=== PATIENT | female | born 1975 | race Caucasian/White ===

== ENCOUNTER → 2018-09-07 | Outpatient (CLI) | payer OTHER ==
[~2018-09-07] MED LIST: DULA1.5P; ETON1VAG7 VG; EXEN2VIA SQ; FLUC150T40 PO; METF-451 PO; PRED20TA6 PO
--- NOTE | 2018-09-07 17:53 | RADIOLOGY IMAGING REPORT ---
FACILITY: [facility] PATIENT NAME: Dacia Ramirez : 1975 MR: [id number] V: [id number] EXAM DATE: ORDERING PHYSICIAN: AUDREY HAN TECHNOLOGIST: Location: [facility] - [place] Patient: Dacia Ramirez : 1975 Visit/Account:[id number] Date of Sevice: 09/07/2018 Exam type: SOFT TISSUE HEAD NECK History: Right neck mass on exam, family history of neck and throat cancer Comparison: None. Findings: In the location of patient's palpable abnormality in zone one adjacent to the angle of the mandible t here is a 0.8 x 0.4 x 0.9 cm fatty replaced lymph node no other lymph nodes were demonstrated in eith er side of the neck IMPRESSION: 1. There is a small subcentimeter fatty replaced lymph node zone one in location of patient's palpab le finding Report Dictated By: Janet Stout MD at 09/07/2018 5:47 PM Report E-Signed By: Janet Stout MD at 09/07/2018 5:49 PM WSN:[id number]
== END ==
LOC: US 15:45
PROVIDERS: ATTEND Nurse Practitioner Family
DX: R59.0 Localized enlarged lymph nodes (principal)
CPT/HCPCS: 76536

== ENCOUNTER → 2018-09-08 | Outpatient (CLI) | payer OTHER ==
--- NOTE | 2018-09-08 12:30 | EKG ---
FACILITY: [facility] PATIENT NAME: KEIKO ZAFAR : [id number] MR: [id number] V: [id number] EXAM DATE: ORDERING PHYSICIAN: ZAYDA ALEXANDRE TECHNOLOGIST: JALEESA Test Reason : PRE-OP CLEARANCE Blood Pressure : / mmHG Vent. Rate : 081 BPM Atrial Rate : 081 BPM P-R Int : 158 ms QRS Dur : 092 ms QT Int : 392 ms P-R-T Axes : 037 078 053 degrees QTc Int : 455 ms Normal sinus rhythm Normal ECG No previous ECGs available Confirmed by BILL MONTGOMERY ([id number]) on 09/08/2018 10:05:58 PM Referred By: BALDOMERO Confirmed By:BILL MONTGOMERY
== END ==
LOC: LAB 11:28
PROVIDERS: ATTEND Surgery
DX: Z01.810 Encounter for preprocedural cardiovascular examination (principal); E11.9 Type 2 diabetes mellitus without complications
CPT/HCPCS: 36415; 82310; 82374; 82435; 82565; 82947; 83036; 84132; 84295; 84520

== ENCOUNTER → 2018-09-17 | Outpatient (CLI) | payer OTHER ==
--- NOTE | 2018-09-17 16:27 | RADIOLOGY IMAGING REPORT ---
FACILITY: [facility] PATIENT NAME: Dacia Ramirez : 1975 MR: [id number] V: [id number] EXAM DATE: ORDERING PHYSICIAN: DIANA SNIDER TECHNOLOGIST: Location: [facility] - [place] Patient: Dacia Ramirez : 1975 Visit/Account:[id number] Date of Sevice: 09/17/2018 Study: CT scan of the paranasal sinuses Indication:Sinusitis Comparison study:None Technique: Multiple axial images were obtained through the paranasal sinuses. Coronal and sagittal 2- dimensional reconstructions were made from the original data set. One of the following dose optimization techniques was utilized in the performance of this exam: Autom ated exposure control; adjustment of the mA and/or kV according to the patient's size; or use of an i terative reconstruction technique. Specific details can be referenced in the facility's radiology C T exam operational policy. Findings: Maxillary sinuses: There is minimal mucosal thickening present at the inferior right maxillary sinus. There is a small retention cyst present as well. Ethmoid air cells:Unremarkable Sphenoid sinus:Unremarkable Frontal sinus:Unremarkable Ostiomeatal units:Patent bilaterally. There is bony thickening of the middle turbinate is well as a p ortion of the ethmoid air cells. This is most consistent with fibrous dysplasia. Nasal septum:Midline IMPRESSION:CT scan of the paranasal sinuses demonstrating minimal inflammatory disease within the rig ht maxillary sinus. There is bony thickening of the right middle nasal turbinate is well as a portion of the ethmoid air cells. This is most consistent with fibrous dysplasia. Report Dictated By: Kevyn Grubbs at 09/17/2018 4:15 PM Report E-Signed By: Kevyn Grubbs at 09/17/2018 4:23 PM WSN:[email or web address]
== END ==
LOC: CT 00:24
PROVIDERS: ATTEND Otolaryngology
DX: M85.08 Fibrous dysplasia (monostotic), other site (principal)
CPT/HCPCS: 70486

== ENCOUNTER 2018-10-08 00:31 | Day surgery (SDC) | payer OTHER ==
[~2018-10-08] VITALS: Ht 162.6 cm; Wt 73.5 kg
[2018-10-08] VITALS (7 sets, daily range): BP systolic 110–118; BP diastolic 77–86
[~2018-10-08 00:31] MED LIST changes: +CHOL400T55 PO; +FLAX100029 PO; +collagen PO
[2018-10-08] MEDS ORDERED: DEXAMETHASONE SOD PHOS 10MG/ML ONE (10:02)
[2018-10-08] MEDS ORDERED: PROPOFOL EMUL(*) 10MG/ML 20 ML 40 ML ONE (10:02)
[2018-10-08] MEDS ORDERED: ONDANSETRON 4 MG/2 ML VIAL ONE (10:02)
[2018-10-08] MEDS ORDERED: LIDO/EPI 1% MDV 1:100,000 20ML INFIL ONE (10:11)
[2018-10-08] MEDS ORDERED: ROPIVACAINE 0.5% 20 ML VIAL ONE (10:11)
[2018-10-08] MEDS ORDERED: fentaNYL CITR 100 MCG/2 ML AMP ONE (10:23)
[2018-10-08] MEDS ORDERED: METOPROLOL TART 5 MG/5 ML VIAL ONE (10:32)
[2018-10-08] MEDS ORDERED: DOCU-416 PO (11:28)
[2018-10-08] MEDS ORDERED: TRAM-420 PO (11:28)
--- NOTE | 2018-10-08 11:32 | Short(Outpt) Discharge Summary ---
Discharge Summary Reason for Hosp/Final Diag: (1) Enlarged lymph node in neck Status: Chronic Hospital Course & Plan: Right submandibular gland partial removal, completed without problems. Departure Discharge to: Home, Self Care Discharge Instructions Home Meds Active Scripts Docusate Sodium (COLACE) 100 Mg Capsule, 1 CAP PO BID, #30 CAP 0 Refills TAKE WITH A FULL GLASS OF WATER Prov:ZAYDA ALEXANDRE MD 10/08/18 Tramadol Hcl (TRAMADOL HCL) 50 Mg Tablet, 1 TAB PO Q4H PRN for PAIN, #20 TAB 0 Refills Prov:ZAYDA ALEXANDRE MD 10/08/18 Reported Medications [collagen] No Conflict Check, 1 TAB PO QDAY 09/30/18 Cholecalciferol (Vitamin D3) (VITAMIN D) 400 Unit Tablet, 1 TAB PO QDAY 09/30/18 Flaxseed Oil (FLAXSEED OIL) 1,000 Mg Capsule, 1000 MG PO QDAY, CAPSULE 09/30/18 Dulaglutide (Trulicity) 1.5 Mg/0.5 Ml Pen.injctr, Q709/08/18 Metformin Hcl (METFORMIN HCL) 850 Mg Tablet, 1 TAB PO BID TAKE ONE TABLET BY MOUTH TWICE A DAY WITH FOOD 01/14/13 Follow up Referrals: General Surgery - 10/23/18 @ Surgery, General with ZAYDA ALEXANDRE MD You have a follow up appointment scheduled with Dr. Alexandre on 10/23/18, at 9:30am. Diet: Regular Activity: As Tolerated Special Instructions: You may shower starting on 10/10/18, but don't immerse the incision for 2 weeks. Leave the steristrips in place until they fall off on their own. ZAYDA ALEXANDRE MD Oct 08, 2018 11:32
--- NOTE | 2018-10-08 11:38 | Post Operative Progress Note ---
Post Operative Progress Note Date: Oct 08, 2018 Time: 11:32 Surgeon: Sarah Dictation number: [id number] Anesthesia: LMA by Dr. Robbins Pre-Op Diagnosis: Right submandibular nodule Post-Op Diagnosis: RADHA Findings: Enlarged, palpable submandibular gland Procedure(s): Right upper neck exploration with partial excision of enlarged submandibular gland Specimen Removed:(May be N/A): Right submandibular gland Complications: None Fluids: See anesthesia record Estimated Blood Loss: Minimal Date OP Note Dictated: Oct 08, 2018 Time OP Note Dictated: 11:34 ZAYDA ALEXANDRE MD Oct 08, 2018 11:38
--- NOTE | 2018-10-08 11:55 | OPERATIVE REPORT 1 ---
EVENT DATE: October 08, 2018 SURGEON: Roe Smith MD ANESTHESIOLOGIST: David Robbins MD ANESTHESIA: LMA. PREOPERATIVE DIAGNOSIS Right submandibular palpable nodule. POSTOPERATIVE DIAGNOSIS Right submandibular palpable nodule. PROCEDURE PERFORMED Right submandibular neck exploration with partial excision of right submandibular gland. COMPLICATIONS None. CONDITION Stable. ESTIMATED BLOOD LOSS Minimal. FINDINGS Patient had an enlarged submandibular gland that was easily palpable. There was no lymphadenopathy in this area. Once I removed this portion of the gland, there was no palpable mass. Grossly, the tissue appeared normal but was sent to pathology. INDICATIONS This is a 43-year old female that presented to my office with a palpable mass in the right submandibular region and she was wanting to have it removed for definitive diagnosis. DESCRIPTION OF PROCEDURE The patient was brought to the operating room and placed supine on the operating table. LMA anesthesia was administered and the right neck was prepped and draped in sterile fashion. Time-out was completed and I identified a skin crease just caudad to the palpable mass and then marked the skin in this area and anesthetized with 0.05% ropivacaine plain and made a skin incision right in the skin crease. I dissected through the dermis and into the subcutaneous fat and skewed my dissection cephalad towards the palpable mass. I went through the platysmas muscle under the cervical fascia and then identified the palpable mass as the submandibular gland. I palpated around and did not find any other lymph nodes or other palpable masses so I removed the inferior most portion of the submandibular gland that was protruding and causing the palpable abnormality. This was sent to pathology in permanent fixative and then I irrigated and dried the wound, closed the cervical fascia with running 3-0 Vicryl sutures and then closed the platysmas with interrupted 3-0 Vicryl sutures and closed the skin with running 4-0 Monocryl subcuticular sutures. Skin was cleaned, dried and Steri-Strips applied lengthwise along the incision. She was then awakened and LMA removed and she was transferred to the recovery room in stable condition, having tolerated the procedure without any apparent problems. [place]
[2018-10-08] MEDS ORDERED: traMADol 50 MG TAB PO ONE (13:00)
[2018-10-08] MEDS ORDERED: FAMOTIDINE 20 MG TAB PO ONE (14:00)
[2018-10-08] MEDS ORDERED: MIDAZOLAM 2 MG/2 ML VIAL IVP PRN (14:00)
[2018-10-08] MEDS ORDERED: ceFAZolin(*) 2GM/D5W 50ML 50 ML IVPB ONE (14:00)
[2018-10-08] MEDS ORDERED: NORMOSOL R SOLN(*) 1000 ML BAG 1,000 ML IV PRN (14:00)
[2018-10-08] MEDS ORDERED: LIDOCAINE/SOD BICARB 8.4% SYR ID ONE (14:00)
== END 2018-10-08 12:13 | disposition home or self-care (01) ==
LOC: OR 00:31
PROVIDERS: ATTEND Surgery
DX: D11.7 Benign neoplasm of other major salivary glands (principal); E11.9 Type 2 diabetes mellitus without complications
CPT/HCPCS: 36416; 42405; 82948; 88305; J1100; J2250; J2405; J2704; J2795; J3010; J0690

== ENCOUNTER 2018-10-26 02:36 | Day surgery (SDC) | payer OTHER ==
[~2018-10-26] VITALS: Ht 162.6 cm; Wt 74.4 kg
[2018-10-26] VITALS (7 sets, daily range): BP systolic 115–134; BP diastolic 81–98
[~2018-10-26 02:36] MED LIST changes: +DOCU-416 PO; +TRAM-420 PO
[2018-10-26] MEDS ORDERED: PROPOFOL EMUL(*) 10MG/ML 20 ML 20 ML ONE (10:23)
[2018-10-26] MEDS ORDERED: LIDOCAINE MPF 1% 5 ML VIAL ONE (10:23)
[2018-10-26] MEDS ORDERED: DEXAMETHASONE SOD 4 MG/ML VIAL ONE (10:23)
[2018-10-26] MEDS ORDERED: ONDANSETRON 4 MG/2 ML VIAL ONE (10:23)
[2018-10-26] MEDS ORDERED: fentaNYL CITR 100 MCG/2 ML AMP ONE ×3 (10:23→12:30)
[2018-10-26] MEDS ORDERED: KETAMINE HCL 200 MG/20 ML MDV ONE (10:25)
[2018-10-26] MEDS ORDERED: LIDO/EPI 1% MDV 1:100,000 20ML INFIL ONE (11:07)
[2018-10-26] MEDS ORDERED: NS(*) 0.9% 500 ML BAG 500 ML ONE (11:07)
[2018-10-26] MEDS ORDERED: OXYMETAZOLINE SPRAY 15 ML BTL ONE (11:07)
[2018-10-26] MEDS ORDERED: ceFAZolin(*) 2GM/D5W 50ML 50 ML IVPB ONE (11:10)
[2018-10-26] MEDS ORDERED: FAMOTIDINE 20 MG TAB PO ONE (11:10)
[2018-10-26] MEDS ORDERED: MIDAZOLAM 2 MG/2 ML VIAL IVP PRN (11:10)
[2018-10-26] MEDS ORDERED: NORMOSOL R SOLN(*) 1000 ML BAG 1,000 ML IV PRN (11:10)
[2018-10-26] MEDS ORDERED: LIDOCAINE/SOD BICARB 8.4% SYR ID ONE (11:10)
[2018-10-26] MEDS ORDERED: CEFU500T10 PO (12:41)
[2018-10-26] MEDS ORDERED: HYDR-653 PO (12:43)
--- NOTE | 2018-10-26 13:26 | OPERATIVE REPORT 1 ---
EVENT DATE: October 26, 2018 SURGEON: Robson Donohue MD ANESTHESIOLOGIST: Charlie Phillips MD ANESTHESIA: LMA. 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 PROCEDURES PERFORMED 1. Resection of right middle turbinate. 2. Right anterior ethmoidectomy. INDICATIONS Please refer to the preoperative note. DESCRIPTION OF PROCEDURE The patient was positively identified in the preoperative area. She was accompanied there by her . Risks were again explained including, but not limited to, bleeding, infection, persistent headache and those associated with anesthesia. She acknowledged understanding those risks. I reviewed the patient's preoperative CT of the sinuses. This was remarkable for change consistent with fibrous dysplasia of the right middle turbinate extending into the right anterior ethmoid cells. She was then brought back to the operative suite, laid supine on the operating table and anesthesia was administered. Once asleep, the patient was positioned and prepped and draped in the usual sterile fashion. I initially decongested the right nasal cavity with cottonoids containing Afrin solution. These were subsequently removed and nasal endoscopy was performed. The right middle turbinate was identified. This was infiltrated with approximately 2 cc of 1% lidocaine with epinephrine. The middle turbinate was incised sharpy with endoscopic scissors, which was taken through to its posterior extent. This was sent for permanent pathology. I then carefully peeled the fibrous dysplasia affecting the anterior ethmoidal cells off the lamina papyracea carefully with a small osteotome. A Nasopore pack was placed. The patient was then returned to Anesthesia for emergence. ESTIMATED BLOOD LOSS 25 cc. COMPLICATIONS. None. [facility]
[2018-10-26] MEDS ORDERED: APAP/HYDROCODONE 325/5 TAB PO ONE (13:30)
--- NOTE | 2018-10-26 13:34 | NUR ---
1313 PT REC'D IN [place] VIA CART, SBAR FROM Ilana MARTINEZ RN TO Ivory BRICE RN, THIS RN TOOK OVER SHORTLY AFTER, ASSESSMENT UNREMARKABLE, MINIMAL DRAINAGE ON MOUSTACHE DRESSING, PT TOLERATING APPLESAUCE AND WATER 1333 FIRST ORAL PAIN PILL GIVEN, PT SATTING WELL ON RA, RESTING WITH EYES CLOSED, , ZAYDA, AT BEDSIDE.
--- NOTE | 2018-10-26 14:53 | NUR ---
1400 VSS, PT RESTING 1430 PT TOLERATING MORE WATER, PAIN 2/10
--- NOTE | 2018-10-26 15:27 | NUR ---
1455 PT READY TO GET DRESSED, ORTHOSTATICS DONE, STABLE, DENIES DIZZINESS, ALLOWED TO DRESS 1505 IV OUT, PRESSURE DRESSING APPLIED, 150ML UP 1510 D/C INSTRUCTIONS COVERED, ALL QUESTIONS ANSWERED, EXTRA DRESSING CHANGE SUPPLIES PROVIDED, ALL BELONGINGS WITH PT, OUT TO CAR WITH Carmen MENSAH RN, INTO CAR AT 1515
== END 2018-10-26 13:13 | disposition home or self-care (01) ==
LOC: OR 02:36
PROVIDERS: ATTEND Otolaryngology
DX: M85.00 Fibrous dysplasia (monostotic), unspecified site (principal); E11.9 Type 2 diabetes mellitus without complications
CPT/HCPCS: 31254; 36416; 82948; 88305; J1100; J2001; J2250; J2405; J2704; J3010; J3490; J7040; J0690